=== PATIENT | male | born 1965 | race Caucasian/White ===

== ENCOUNTER 2020-12-01 11:34 | Emergency (ER) | payer OTHER, SELFPAY ==
--- NOTE | ~2020-12-01 | CT_ITS ---
EXAMINATION: CT abdomen pelvis w con DATE: 12/01/2020 15:20 INDICATION: Upper abdominal pain. TECHNIQUE: Computed tomography (CT) of the abdomen and pelvis was performed with 100 mL Omnipaque 350 intravenous contrast. Automated exposure control and iterative reconstruction technique were employe d. The dose-length product was 448.81 mGy-cm. COMPARISON: None. FINDINGS: The visualized portions of the lung bases are clear without pneumonia or pleural effusion. The heart size is normal. No pericardial effusion. The liver, gallbladder, and pancreas are normal. T here are peripheral low-attenuation infarcts in the spleen. Right adrenal gland is normal. There is a 14 mm mass in left adrenal gland measuring soft tissue attenuation. The kidneys are normal. There ar e no dilated loops of bowel. The appendix is normal. There are no pathologically enlarged lymph nodes . There is no free intraperitoneal fluid. There is no significant stenosis of superior mesenteric art juan or the renal arteries. 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 There is surrounding fat stranding, consistent with inflammation. There is mild thoracolum bar spondylosis. IMPRESSION: 1. Acute dissecting aneurysm of celiac axis. 2. Acute splenic infarcts. 3. 14 mm left adrenal mass. In the absence of known malignancy, this finding is likely an adenoma. Reviewed, dictated and finalized at location A.
[2020-12-01 11:39] VITALS: BP 159/111; PULSE 71; RESP 19; TEMP 36.8; O2SAT 100
[2020-12-01 11:52] LABS: Basophils Absolute Auto 0.1 K/mm3 (0.0-0.1); Basophils Percent Auto 0.3 % (0.2-1.2); Eosinophils Percent Auto 0.1 % (0-4.4); Hemoglobin 18.6 g/dL (14.0-18.0); Immature Granulocyte Absolute 0.05 K/mm3 (0.00-0.031); Immature Granulocyte Percent A 0.3 % (0-0.5); Lymphocytes Percent Auto 17.9 % (18.3-44.2); Mean Corpuscular HGB Conc 35.8 g/dl (32-36); Mean Corpuscular Hemoglobin 30.5 pg (26-34); Mean Corpuscular Volume 85.4 fl (80-100); Mean Platelet Volume 10.3 fl (7.4-10.4); Monocytes Absolute Auto 1.9 K/mm3 (0.1-0.6); Monocytes Percent Auto 11.3 % (2.6-8.5); Neutrophils Absolute Auto 11.8 K/mm3 (1.3-6.7); Neutrophils Percent Auto 70.1 % (45.5-73.1); Platelet Count Result 365 k/mm3 (150-375); Red Blood Count 6.09 M/mm3 (4.6-6.20); Red Cell Distribution Width 12.5 % (11.5-14.5); White Blood Count 16.8 K/mm3 (4.5-10.0)
[2020-12-01 12:04] LABS: Alanine Aminotransferase 26 U/L (4-50); Albumin Level 5.4 g/dL (3.5-5.1); Alkaline Phosphatase 103 U/L (38-126); Anion Gap 13 mmol/L (8-16); Aspartate Amino Transferase 26 U/L (17-59); Bilirubin,Total 1.5 mg/dL (0.2-1.3); Blood Urea Nitrogen 26 mg/dL (9-20); Calcium 10.4 mg/dL (8.4-10.2); Carbon Dioxide 25 mmol/L (22-30); Chloride 99 mmol/L (98-107); Estimated CRCL calculation 67 ml/min; Estimated Glomerular Filt Rate > 60; Glucose 118 mg/dL (65-110); Lipase 23 U/L (23-300); Potassium 4.4 mmol/L (3.4-5.0); Sodium 137 mmol/L (137-145)
[2020-12-01] MEDS: MORPHINE SULFATE (*CRX) 4 MG/ML INJ IV PUSH (13:13)
[2020-12-01] MEDS: ONDANSETRON INJ 4 MG/2 ML VIAL IV PUSH ×2 (13:13→15:26)
--- NOTE | 2020-12-01 14:16 | ED.ABDPAIN ---
HPI - Abdominal Pain General Chief Complaint: Abdominal Pain Stated Complaint: abd pain Time Seen by Provider: 12/01/20 12:21 Source: patient Mode of arrival: ambulatory Limitations: no limitations History of Present Illness HPI narrative: 55 years old white male presents with upper abdominal pain started 4 days ago. Sharp stabbing pain. No radiation, patient denies any fever, chills, nausea, vomiting. Patient reported poor appetite for the last 6 days, not eating or drinking enough. Patient also complaining of no bowel movement for the last 4 days. History of GERD, alcohol use occasionally, no smoking or drugs. Related Data Home Medications Medication Instructions Recorded Confirmed No Home Medications 12/01/20 12/01/20 Allergies Allergy/AdvReac Type Severity Reaction Status Date / Time Penicillins Allergy Unknown Unknown Verified 12/01/20 11:46 Review of Systems Review of Systems: CONSTITUTIONAL: Denies fever, chills, or sweats. EYES: Denies visual changes, redness, or discharge. ENT: Denies rhinorrhea, congestion, sore throat, or otalgia. CARDIOVASCULAR: Denies chest pain, palpitations, or edema. RESPIRATORY: Denies cough or dyspnea. GASTROINTESTINAL: Denies abdominal pain, nausea, vomiting, or diarrhea. GENITOURINARY: Denies dysuria or hematuria. SKIN: Denies rash or itching. MUSCULOSKELETAL: Denies back pain, joint pain, or myalgia. NEUROLOGIC: Denies headache, numbness, or weakness. PSYCHIATRIC: Denies anxiety or depression. [facility] Family History Family History Mother Family history of diabetes mellitus in first degree relative Family history of coronary artery disease Social History Social History Smoking status: Never smoker Alcohol intake: current Exam Narrative: General appearance: Well-developed, well-nourished, looks uncomfortable Skin: Normal color Head: Normocephalic, nontraumatic Eyes: Clear conjunctiva ENT: Oropharynx normal, ears normal, nose normal Neck: Supple, nontender Chest and respiratory: Airway patent, no respiratory distress, no accessory muscle use Heart: Regular rate/rhythm Abdomen: Soft, diffuse tenderness upper abdomen, no guarding or rebound, no organomegaly, quiet bowel sounds Vascular: Normal peripheral pulses, normal capillary refill. 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, no gross motor deficit Course Course Emergency Course: Stable Consultations Consultation #1: DR GUSTAFSON, vascular surgeon at [facility] who accepted patient transfer to the ED Kameron Luna, ED physician at [facility] Date: 12/01/20 Time: 17:11 Vital Signs Vital signs: Vital Signs Temperature 36.8 C 12/01/20 11:39 Pulse Rate 71 12/01/20 11:39 Respiratory Rate 19 12/01/20 11:39 Blood Pressure 159/111 H 12/01/20 11:39 Pulse Oximetry 100 12/01/20 11:39 Temperature 36.8 C 12/01/20 11:39 Pulse Rate 71 12/01/20 17:02 Respiratory Rate 23 H 12/01/20 17:02 Blood Pressure 174/111 H 12/01/20 17:02 Pulse Oximetry 100 12/01/20 17:02 MDM - Abdominal Pain MDM Narrative Medical decision making narrative: Abdominal pain. Differential diagnosis as below. Labs, CT abdomen pelvis with IV contrast ordered. Differential Diagnosis Differential diagnosis: Likely abdominal pain, constipation, diverticulitis, gastroenteritis and pancreatitis Lab Data Result diagrams: 12/01/20 11:44 12/01/20 11:44 Labs: Lab Results 12/01/20 12/01/20 12/01/20 Range/Units 11:44 11:44 14:26
[2020-12-01 14:50] LABS: Add Urine Microscopic? YES; Appearance Urine Clear (Clear); Bacteria Urine Trace /hpf; Bilirubin Urine Negative (Negative); Blood Urine Negative (Negative); Color Urine Yellow (Yellow); Glucose Urine UA Negative (Negative); Ketones Urine 2+ mg/dL (Negative); Leukocyte Esterase Ur Negative LEU/UL (Negative); Mucus Urine Few /lpf; Nitrate Urine Negative (Negative); Protein Urine 2+ mg/dL (Negative); Specific Grav Ur 1.027 (1.001-1.035); Urobilinogen Urine Negative mg/dL (<2.0); WBC Urine 0-3 /hpf
[2020-12-01] MEDS: HYDROmorphone HCL INJ (*CRX) 1 MG/ML SYR 0.5 MG IV PUSH (15:26)
[2020-12-01 16:21] VITALS: BP 172/113; PULSE 73; RESP 15; O2SAT 100
[2020-12-01] MEDS: HEPARIN SOD/D5W 100 UNITS/ML 25,000 UNITS/250 ML BAG 15 UNITS IV CONT (16:47)
[2020-12-01 16:48] LABS: EDCOVIDSCREEN Negative (Negative)
[2020-12-01] MEDS: HEPARIN SODIUM 5,000 UNITS/ML VIAL 5000 UNITS (16:50)
[2020-12-01 16:59] VITALS: BP 169/119; PULSE 71
[2020-12-01] MEDS: ESMOLOL HCL 2,500 MG/250 ML 2,500 MG/250 ML BAG 24.48 MG IV CONT (16:59)
[2020-12-01 17:02] VITALS: BP 174/111; PULSE 71; RESP 23; O2SAT 100
[2020-12-01 17:44] VITALS: BP 166/118; PULSE 76; RESP 21; O2SAT 100
== END 2020-12-01 17:46 | disposition short-term general hospital (02) ==
PROVIDERS: Emergency Medicine; Emergency Provider Emergency Medicine; PCP Internal Medicine
DX: I72.8 Aneurysm of other specified arteries (principal); D73.5 Infarction of spleen; Z20.822 Contact with and (suspected) exposure to COVID-19; E27.8 Other specified disorders of adrenal gland
CPT/HCPCS: 36415; 74177; 80053; 81001; 83690; 85025; 87426; 96365; 96375; 96376; 99291; C9803; J1170; J1644; J2270; J2405; Q9967

== ENCOUNTER 2023-10-27 20:33 | Emergency (ER) | payer OTHER, SELFPAY ==
[2023-10-27] VITALS (14 sets, daily range): BP systolic 123–154; BP diastolic 93–107; PULSE 70–88; RESP 16–26; TEMP 36.6; O2SAT 93–98
--- NOTE | ~2023-10-27 | XR_ITS ---
EXAMINATION: XR chest 2V Exam Date/Time: 10/27/2023 21:05 CDT HISTORY: chest pain Comparison: None. RESULT: Lines, tubes, and devices: None. Lungs and pleura: Low volumes with crowding. Streaky bibasilar opacities. No large focal consolidati on, large effusion, or pneumothorax. Cardiomediastinal silhouette: Stable. Other: No acute osseous or upper abdominal finding. IMPRESSION: Pulmonary opacities likely related to suboptimal inspiration and bibasilar atelectasis. Infection or mild interstitial edema not excluded. Reviewed, dictated and finalized at location K. IMPRESSION: Pulmonary opacities likely related to suboptimal inspiration and bibasilar atel ectasis. Infection or mild interstitial edema not excluded.
--- NOTE | ~2023-10-27 | CT_ITS ---
EXAMINATION: CTA chest abdomen pelvis DATE: 10/27/2023 22:37 INDICATION: Chest pain, abdominal pain, hx celiac dissection . TECHNIQUE: Computed tomography (CT) of the chest, abdomen, and pelvis was performed with 100 mL Omnip aque-350 intravenous contrast in the arterial phase. Automated exposure control and iterative reconst ruction technique were employed. The dose-length product was 1083.09 mGy-cm. COMPARISON: X-ray chest, same date; CT abdomen pelvis 12/01/2020. FINDINGS: CHEST: Thoracic aorta: No significant dilation. No dissection. Lung parenchyma and airways: Low volumes with considerable motion artifact. Patchy areas of groundgla ss opacity in the left lower lung, with dependent subsegmental consolidation. Patent airways. Thoracic inlet, axillae and chest wall: No thyroid or soft tissue mass. No axillary lymphadenopathy. Mediastinum: No mass or lymphadenopathy. Heart and pericardium: Mild cardiomegaly. No pericardial effusion. Coronary artery calcifications: Absent. Pleura: Small volume left pleural fluid collection. Thoracic bones: No acute osseous finding in the chest. ABDOMEN/PELVIS: Liver: Normal. Biliary/Gallbladder: Gallbladder is normal. No bile duct dilation. Pancreas: No mass or duct dilation. Spleen: Normal. Adrenals: Stable 14 mm indeterminate density left adrenal nodule, likely adenoma. Kidneys: No suspicious mass, obstructing stone, or hydronephrosis. GI tract: No small or large bowel dilation. Normal appendix. Mesentery/Peritoneum: No ascites, mass, or free air. Retroperitoneum: No mass. stable celiac dissection a region of focal mild aneurysmal dilation, better seen in today's study given the arterial angiographic technique. The aneurysm terminates in the prox imal splenic artery. Normal enhancement of the distal celiac branches. Pelvis: Mild bladder wall thickening. Mild prostatomegaly. Soft Tissues: Soft tissues and body wall unremarkable. Abdominopelvic bones: No acute osseous finding in the abdomen/pelvis. IMPRESSION: Motion artifact and low lung volumes limit lung evaluation. Left lower lobe opacities may represent infection in the appropriate clinical context, noting that as ymmetric edema and atelectatic changes could appear similarly. Trace left pleural effusion. Stable dissecting celiac artery aneurysm. Normal enhancement of the distal celiac branches. Reviewed, dictated and finalized at location K. IMPRESSION: Motion artifact and low lung volumes limit lung evaluation. Left lower lobe opacities may represent infection in the appropriate clinical c ontext, noting that asymmetric edema and atelectatic changes could appear simil hayden. Trace left pleural effusion. Stable dissecting celiac artery aneurysm. Normal enhancement of the distal dusty ac branches.
--- NOTE | 2023-10-27 20:36 | ECG_ITS ---
Test Date: 2023-10-27 20:39:17 Measurements Intervals [place] Rate: 77 P: 8 GA: 144 QRS: -14 QRSD: 77 T: 24 QT: 378 QTc: 430 Interpretive Statements SINUS RHYTHM DELAYED PRECORDIAL R/S TRANSITION BASELINE ARTIFACT- I, II, III, AVR, AVL, AVF, V1-V6 BORDERLINE ECG No previous ECG available for comparison Electronically Signed On 10-28-2023 06:05:27 CDT by Josh Hartman D.O.
[2023-10-27] MEDS: ASPIRIN 81 MG CHEWABLE TABLET 324 MG PO (21:19)
[2023-10-27] MEDS: HYDROmorphone HCL INJ (*CRX) 1 MG/ML SYR IV PUSH (21:20)
[2023-10-27] MEDS: ONDANSETRON INJ 4 MG/2 ML VIAL IV PUSH (21:20)
--- NOTE | 2023-10-27 21:21 | ED.GENADULT ---
HPI - General Adult General Chief complaint: Chest Pain Stated complaint: chest pain, diagnosed with dissection Time Seen by Provider: 10/27/23 20:49 History of Present Illness HPI narrative: Patient 58-year-old gentleman who presents emergency department with chief complaint of left-sided chest pain patient reports that he had history of a celiac artery dissection and 2020 patient reports he started having sharp pain in the left side of his lower chest and into his abdomen the patient reports the pain is worse with inspiration worse with movement. The patient reports his blood pressure has been elevated and reports that he may have missed a dose or 2 of his blood pressure medicines. Patient reports that he is followed by vascular at [facility] Related Data Home Medications Medication Instructions Recorded Confirmed aspirin 81 mg tablet,delayed 81 mg PO DAILY 01/01/21 06/03/23 release Allergies Allergy/AdvReac Type Severity Reaction Status Date / Time Penicillins Allergy Unknown Unknown Verified 10/27/23 21:19 Review of Systems Review of Systems: A 10 system review of systems was completed on the patient and is negative except for what is stated in the HPI. Nursing and ancillary documentation was reviewed. [facility] Past Medical History Medical History Celiac artery dissection GERD (gastroesophageal reflux disease) HTN (hypertension) Overweight Splenic infarction Surgical History Surgical History History of arthroscopy of both knees History of tonsillectomy Family History Family History Mother Hypertension Diabetes mellitus Social History Social History Smoking status: Never smoker Second hand tobacco smoke exposure: No Alcohol intake: current Drinks per week: 2 Substance use: never Substance use type: does not use Do You Feel Safe in your Home?: Yes Lack of Transportation: No Lack of Food: Never True Current Housing: I Have Housing Concerned About Future Housing: No Difficulty Paying Gas/Electric Bills: No Difficulty Paying for Meds: No Currently Unemployed: No Education: Don't Know Difficulty w/ Childcare or Family Care: No Living arrangements: alone Occupation/Education: occupation Gender identity (if verbalized by the patient): Male Sexual Orientation (if Verbalized by the Patient): Straight or Heterosexual Exam Narrative: GENERAL: Well-appearing, well-nourished, and in moderate acute pain distress. HEAD: Normocephalic, atraumatic. EYES: PERRLA and EOMI. ENT: Nares clear, no rhinorrhea or epistaxis. Mucous membranes moist. NECK: Supple. CHEST: Clear to auscultation. No respiratory distress. HEART: Regular rate and rhythm. No murmur heard. Normal peripheral pulses. ABDOMEN: Soft, nontender, nondistended, normal active bowel sounds. EXTREMITIES: Normal range of motion. No edema. SKIN: Warm, dry, no rash. NEURO: No focal deficits. Alert and oriented x3. PSYCH: Normal mood and affect. Course Vital Signs Vital signs: Vital Signs Temperature 36.6 C 10/27/23 20:59 Pulse Rate 78 10/27/23 20:59 Respiratory Rate 22 H 10/27/23 20:59 Blood Pressure 137/93 H 10/27/23 20:59 Pulse Oximetry 98 10/27/23 20:59 Oxygen Delivery Room Air 10/27/23 20:59 Temperature 37.1 C 10/28/23 00:38 Pulse Rate 76 10/28/23 00:38 Respiratory Rate 16 10/28/23 00:38 Blood Pressure 174/84 H 10/28/23 00:38 Pulse Oximetry 98 10/28/23 00:38 Oxygen Delivery Room Air 10/27/23 22:00 Medical Decision Making MDM Narrative Medical decision making narrative: Differential diagnosis includes aortic dissection pulmonary embolism, ACS, pleurisy, pneumothorax, Chest x-ray s
[2023-10-27 21:31] LABS: Basophils Percent Auto 0.3 % (0.2-1.2); Eosinophils Absolute Auto 0.1 K/mm3 (0-0.3); Eosinophils Percent Auto 0.7 % (0-4.4); Hematocrit 45.4 % (42.0-52.0); Hemoglobin 15.8 g/dL (14.0-18.0); Immature Granulocyte Absolute 0.06 K/mm3 (0.00-0.031); Immature Granulocyte Percent A 0.4 % (0-0.5); Lymphocytes Absolute Auto 2.34 K/mm3 (0.9-3.2); Lymphocytes Percent Auto 14.8 % (18.3-44.2); Mean Corpuscular HGB Conc 34.8 g/dl (32-36); Mean Corpuscular Hemoglobin 29.7 pg (26-34); Mean Corpuscular Volume 85.3 fl (80-100); Mean Platelet Volume 10.8 fl (7.4-10.4); Monocytes Absolute Auto 1.6 K/mm3 (0.1-0.6); Monocytes Percent Auto 10.4 % (2.6-8.5); Neutrophils Absolute Auto 11.6 K/mm3 (1.3-6.7); Neutrophils Percent Auto 73.4 % (45.5-73.1); Platelet Count Result 256 k/mm3 (150-375); Red Blood Count 5.32 M/mm3 (4.6-6.20); Red Cell Distribution Width 13.1 % (11.5-14.5); White Blood Count 15.8 K/mm3 (4.5-10.0)
[2023-10-27 21:43] LABS: Prothrombin Time 13.3 Seconds (11.1-14.7)
[2023-10-27 21:44] LABS: Partial Thromboplastin Time 28.5 Seconds (22.3-36.8)
[2023-10-27 21:58] LABS: Alanine Aminotransferase 46 U/L (6-50); Albumin Level 4.3 g/dL (3.5-5.1); Alkaline Phosphatase 107 U/L (38-126); Anion Gap 11 mmol/L (4-12); Aspartate Amino Transferase 42 U/L (17-59); Bilirubin,Total 0.8 mg/dL (0.2-1.3); Blood Urea Nitrogen 14 mg/dL (9-20); Calcium 9.3 mg/dL (8.4-10.2); Carbon Dioxide 25 mmol/L (22-30); Chloride 98 mmol/L (98-107); Estimated CRCL calculation 98 ml/min; Estimated Glomerular Filt Rate > 60; Glucose 133 mg/dL (65-110); Lipase 35 U/L (23-300); Potassium 4.2 mmol/L (3.4-5.0); Sodium 134 mmol/L (137-145)
[2023-10-27 22:08] LABS: Troponin I < 0.012 ng/mL (0.000-0.034)
[2023-10-28] VITALS: PULSE 86; RESP 24
[2023-10-28 00:01] VITALS: BP 120/100; PULSE 73; RESP 17; O2SAT 99
--- NOTE | 2023-10-28 00:05 | ECG_ITS ---
Test Date: 2023-10-28 00:07:56 Measurements Intervals [place] Rate: 80 P: 16 UT: 147 QRS: -8 QRSD: 85 T: 23 QT: 348 QTc: 403 Interpretive Statements SINUS RHYTHM DELAYED PRECORDIAL R/S TRANSITION VOLTAGE CRITERIA FOR LVH BORDERLINE ECG Compared to ECG 10/27/2023 20:39:17 No significant changes Electronically Signed On 10-28-2023 06:09:18 CDT by Josh Hartman D.O.
[2023-10-28] MEDS: DOXYCYCLINE 100 MG/NS 100 ML 100 MG/100 ML BAG IVPB (00:06)
[2023-10-28] MEDS: HYDROmorphone HCL INJ (*CRX) 1 MG/ML SYR 0.5 MG IV PUSH (00:06)
[2023-10-28] MEDS: cefTRIAXone 2 GM/NS 100 ML 2 GM/100 ML BAG IVPB (00:06)
[2023-10-28 00:15] VITALS: PULSE 82; RESP 22; O2SAT 97
--- NOTE | 2023-10-28 00:29 | PC.NURSE ---
report given to richie loja at [facility] ed
[2023-10-28 00:38] VITALS: BP 174/84; PULSE 76; RESP 16; TEMP 37.1; O2SAT 98
[2023-10-28 00:39] LABS: Troponin I < 0.012 ng/mL (0.000-0.034)
--- NOTE | 2023-10-28 00:41 | PC.NURSE ---
Report to [facility].
== END 2023-10-28 00:52 | disposition short-term general hospital (02) ==
PROVIDERS: Emergency Medicine; Emergency Provider Student in an Organized Health Care Education/Training Program; PCP Family Medicine
DX: I77.79 Dissection of other specified artery (principal); I72.8 Aneurysm of other specified arteries; J18.9 Pneumonia, unspecified organism; R07.9 Chest pain, unspecified; I10 Essential (primary) hypertension; E66.3 Overweight; Z68.30 Body mass index [BMI] 30.0-30.9, adult; K21.9 Gastro-esophageal reflux disease without esophagitis; Z79.82 Long term (current) use of aspirin; Z79.899 Other long term (current) drug therapy; R94.31 Abnormal electrocardiogram [ECG] [EKG]
CPT/HCPCS: 36415; 71046; 71275; 74174; 80053; 83690; 84484; 85025; 85610; 85730; 93005; 96365; 96367; 96375; 99285; A9270; J0696; J1170; J2405; Q9967